=== PATIENT | female | born 1975 | race Caucasian/White ===

== ENCOUNTER → 2024-01-23 | Outpatient (CLI) | payer SELFPAY, OTHER ==
--- NOTE | 2024-01-23 12:41 | MRI_ITS ---
STUDY: MRI LUMBAR SPINE WITHOUT CONTRAST REASON FOR EXAM: Female, 48 years old. Intervertebral disc degeneration TECHNIQUE: Standardized fat and water weighted pulse sequences were obtained in the sagittal and axial planes. COMPARISON: Lumbar spine radiographs 02/28/2021. FINDINGS: T11-T12 and T12-L1: Normal endplates. Normal disc height, hydration and morphology. No ventral extradural defects. Normal central canal and bilateral intervertebral neural foramina. Normal lumbar lordosis. There is no substantial scoliosis. Normal conus medullaris that terminates at the lower T12 vertebral body level. L1-2: Normal endplates. Normal disc height, hydration and morphology. Normal bilateral facet joints. Normal central canal and bilateral lateral recesses. Normal bilateral intervertebral neural foramina. L2-3: Normal endplates. Normal disc height, hydration and morphology. Normal bilateral facet joints. Normal central canal and bilateral lateral recesses. Normal bilateral intervertebral neural foramina. L3-4: Normal endplates. Normal disc height, hydration and morphology. Normal bilateral facet joints. Normal central canal and bilateral lateral recesses. Normal bilateral intervertebral neural foramina. L4-5: Normal endplates. Normal disc height, hydration and morphology. Normal bilateral facet joints. Normal central canal and bilateral lateral recesses. Normal bilateral intervertebral neural foramina. L5-S1: Modic type II degenerative vertebral marrow fat infiltration underneath the vertebral endplates. Moderate disc space height narrowing. Small posterior bulging annulus without ventral extradural defect due to presence of ventral epidural fat. No significant facet arthropathy. Normal central canal and bilateral lateral recesses. Mild stenosis of the bilateral intervertebral neural foramina due to disc space height narrowing. Normal visualized sacral ala. Normal visualized paraspinous soft tissue structures. MRI/Spine Lumbar (Routine) IMPRESSION: 1. No MRI evidence of lumbar extruded disc fragment, disc extrusion or nerve root displacement. 2. Moderate L5-S1 disc space height narrowing with small posterior bulging annulus and mild stenosis of the bilateral intervertebral neural foramina. Electronically Signed: Brown Bishop MD at 13:05 EDT ,
--- NOTE | 2024-01-23 12:42 | MRI_ITS ---
STUDY: MRI THORACIC SPINE WITHOUT CONTRAST REASON FOR EXAM: Female, 48 years old. Other intervertebral disc degeneration TECHNIQUE: Standardized fat and water weighted pulse sequences were obtained in the sagittal and axial planes. COMPARISON: None. FINDINGS: Normal kyphosis of the thoracic spine. There is no substantial scoliosis. T1-2, T2-3, T3-4, T4-5, T5-6, T6-7, T7-8, T8-9, T9-10, T10-11, T11-12: Mild old anterior wedge fracture in the central to anterior upper T7 vertebral body causing increased central disc space height. Prominent midline ventral extradural defect is disc protrusion. This is causing minimal deformity of the ventral cord surface. Normal remaining thoracic vertebral body heights. Normal remaining disc space heights and morphology. Mild deformity of the ventral cord surface of the T6-T7 disc space level due to disc protrusion but no intrinsic signal abnormalities of the spinal cord. Normal conus medullaris that terminates at the lower T12 vertebral body level. The soft tissue structures are unremarkable. MRI/Spine Thoracic (Routine) IMPRESSION: 1. Old anterior wedge compression fracture of the upper T7 vertebral body 2. Prominent T6-T7 posterior midline disc protrusion causing minimal indentation deformity of the ventral cord surface without definite cord compression and no intrinsic signal abnormality of the spinal cord. 3. No MRI evidence of thoracic extruded disc fragment or spinal stenosis. 4. Normal remaining thoracic disc space levels. Electronically Signed: Brown Bishop MD at 11:08 EDT ,
== END | disposition home or self-care (01) ==
LOC: MRI 12:34
PROVIDERS: PCP Family Medicine; Referring Provider Nurse Practitioner Family; Visit Provider Nurse Practitioner Family
DX: M51.36 Other intervertebral disc degeneration, lumbar region (principal)
CPT/HCPCS: 72146; 72148